=== PATIENT | male | born 1995 | race Caucasian/White ===

== ENCOUNTER 2017-08-08 02:03 | Emergency (ER) | payer SELFPAY, OTHER ==
[2017-08-08] MEDS: IBUPROFEN 600 MG TAB PO (03:29)
== END 2017-08-08 04:30 | disposition home or self-care (01) ==
LOC: FTE 02:03
DX: R07.89 Other chest pain (principal)
CPT/HCPCS: 71045; 71100; 93005; 99284-25

== ENCOUNTER 2017-08-24 18:32 | Emergency (ER) | payer MEDICAID ==
[2017-08-24] MEDS: DEXAMETHASONE 10 MG/ML 1 ML INJ IM (20:42)
[2017-08-24] MEDS: DIPHENHYDRAMINE 25 MG CAP PO (20:42)
[2017-08-24] MEDS: RANITIDINE 150 MG TAB PO (20:46)
== END 2017-08-24 23:08 | disposition home or self-care (01) ==
LOC: FTE 18:32
DX: R21 Rash and other nonspecific skin eruption (principal)
CPT/HCPCS: 96372; 99284-25

== ENCOUNTER 2017-08-25 20:16 | Emergency (ER) | payer MEDICAID | END 2017-08-25 22:38 | disposition home or self-care (01) | LOC: FTE 20:16 | DX: R21 Rash and other nonspecific skin eruption (principal) | CPT/HCPCS: 99283; Z7502 ==

== ENCOUNTER 2018-05-02 11:52 | Emergency (ER) | payer SELFPAY, MEDICAID ==
[2018-05-02] MEDS: KETOROLAC 60 MG INJ IM (13:26)
== END 2018-05-02 15:03 | disposition home or self-care (01) ==
LOC: FTE 11:52
DX: M54.6 Pain in thoracic spine (principal); R07.89 Other chest pain
CPT/HCPCS: 71045; 93005; 96372; 99284-25

== ENCOUNTER 2018-05-30 16:58 | Emergency (ER) | payer SELFPAY ==
[2018-05-30] MEDS: LIDOCAINE/MYLANTA 40 ML BTL PO (20:01)
[2018-05-30] MEDS: KETOROLAC 30 MG INJ IM (20:01)
[2018-05-30] MEDS: RANITIDINE 150 MG TAB PO (20:22)
== END 2018-05-30 20:45 | disposition home or self-care (01) ==
LOC: FTE 20:45
DX: M54.6 Pain in thoracic spine (principal); R10.13 Epigastric pain
CPT/HCPCS: 96372; 99284-25

== ENCOUNTER 2018-06-05 22:55 | Emergency (ER) | payer SELFPAY, OTHER | END 2018-06-06 01:30 | disposition home or self-care (01) | LOC: FTE 22:55 | DX: K59.00 Constipation, unspecified (principal) | CPT/HCPCS: 99282 ==